=== PATIENT | female | born 1965 | race Caucasian/White ===

== ENCOUNTER 2018-07-29 10:58 | Outpatient (CLI) | payer OTHER ==
[2018-07-29] MEDS ORDERED: CITA20TA6 PO (11:35)
[2018-07-29] MEDS ORDERED: CHOL5000 PO (11:35)
[2018-07-29] MEDS ORDERED: OMEP-110 PO (11:35)
[2018-07-29] MEDS ORDERED: BIOT25005 PO (11:35)
[2018-07-29] MEDS ORDERED: MULT-658 PO (11:35)
== END 2018-07-29 23:59 | disposition home or self-care (01) ==
LOC: STAR 10:58
PROVIDERS: ATTEND Specialist
DX: Z02.9 Encounter for administrative examinations, unspecified (principal)

== ENCOUNTER 2018-08-03 19:20 | Observation (INO) | payer OTHER ==
[~2018-08-03] VITALS: Ht 170.2 cm; Wt 106.0 kg
[~2018-08-03 19:20] MED LIST: ACETAMINOPHEN 500 MG TABLET PO ONE; BIOT25005 PO; BUPIVACAINE/PF 0.25% ONE; CEFAZOLIN 1,000 MG ONE; CHOL5000 PO; CITA20TA6 PO; DEXAMETHASONE 4 MG/ML, 1ML ONE; DIPHENHYDRAMINE 50 MG/ML, 1ML IVPush PRN; EPINEPHRINE 1 MG/ML, 1ML ONE; FENTANYL PF 100 MCG/2ML IV PRN; FENTANYL PF 100 MCG/2ML ONE; FENTANYL PF 250 MCG/5ML ONE; FLUORESCEIN SODIUM 500 MG/5 ML ONE; GABAPENTIN 300 MG CAPSULE PO ONE; GLYCOPYRROLATE 0.2MG/1ML, 5ML ONE; HALOPERIDOL 5 MG/ML IV PRN; HYDROmorphone 1 MG/ML, 1ML ONE; HYDROmorphone 2 MG/ML, 1ML IVPush PRN; INDIGO CARMINE 0.8%, 5ML ONE; LABETALOL 5MG/ML, 20ML IV PRN; LACTATED RINGERS 1,000 ML IV SCH; LIDOCAINE-MPF 1%, 2ML INFIL ONE; MEPERIDINE/PF 25MG/0.5ML IVPush PRN; METHYLENE BLUE 10 MG/ML 10ML ONE; METOPROLOL 1 MG/ML, 5ML IV PRN; MIDAZOLAM 1 MG/ML, 2ML ONE; MULT-658 PO; NEOSTIGMINE 1 MG/ML, 10ML ONE; OMEP-110 PO; ONDANSETRON 2MG/ML, 2ML ONE; OXYcodone 5 MG/5 ML ORAL.SOL UDC PO PRN; PROCHLORPERAZINE 5 MG/ML, 2ML IV PRN; PROMETHAZINE 25 MG/ML, 1ML IV PRN; PROMETHAZINE 25 MG/ML, 1ML ONE; PROPOFOL 10 MG/ML, 20ML ONE; ROCURONIUM 10 MG/ML,10ML ONE; SCOPOLAMINE PATCH, 1.5MG PATCH.TD72 TD ONE; SUCCINYLCHOLINE 20 MG/ML, 10ML ONE; hydrALAzine 20 MG/ML, 1ML IV PRN
[2018-08-03] MEDS ORDERED: ONDANSETRON 2MG/ML, 2ML IV PRN (20:00)
[2018-08-03] MEDS ORDERED: ACETAMINOPHEN 325 MG TABLET PO PRN (20:00)
[2018-08-03] MEDS ORDERED: ACETAMINOPHEN 650 MG SUPP PR PRN (20:00)
[2018-08-03] MEDS ORDERED: INSTRUCTION SEE COMMENTS XX PRN (20:00)
[2018-08-03 20:24] VITALS: BP 117/75
[2018-08-03] MEDS: SODIUM CHLORIDE FLUSH 10ML SYR IVF SCH (21:00)
[2018-08-03] MEDS: KETOROLAC 30 MG/1 ML IV PRN (21:19)
[2018-08-04 00:10] VITALS: BP 102/66
[2018-08-04] MEDS: OXYcodone/APAP 5/325MG TABLET PO PRN ×2 (01:13→10:35)
[2018-08-04 04:37] VITALS: BP 100/65
[2018-08-04] MEDS: KETOROLAC 30 MG/1 ML IV PRN (05:44)
[2018-08-04 06:47] VITALS: BP 102/66
[2018-08-04] MEDS ORDERED: MULTIVITAMIN 1 TABLET PO SCH (09:00)
[2018-08-04] MEDS ORDERED: CHOLECALCIFEROL 5,000u TAB PO SCH (09:00)
[2018-08-04] MEDS: SODIUM CHLORIDE FLUSH 10ML SYR IVF SCH (10:35)
[2018-08-05] MEDS ORDERED: OMEPRAZOLE 10 MG CAPSULE.DR PO SCH (06:00)
[2018-08-05] MEDS ORDERED: CITALOPRAM 10 MG TABLET PO SCH (09:00)
== END 2018-08-04 14:20 | disposition home or self-care (01) ==
LOC: OUT 19:20 → 4NOR 19:32 → DCLOUNGE 08-04 14:12
PROVIDERS: ADMIT Specialist; ATTEND Specialist
DX: D25.9 Leiomyoma of uterus, unspecified (principal); N83.202 Unspecified ovarian cyst, left side; N89.5 Stricture and atresia of vagina; Z98.84 Bariatric surgery status
CPT/HCPCS: 57268; 58552; 74018; 81025; 88307; 96374; 96375; 96376; G0378; J0330; J0690; J1100; J1170; J1885; J2250; J2405; J2550; J2704; J2710; J3010; J3490; J7120; J0171; Q9968